=== PATIENT | male | born 2000 | race Two or more races ===

== ENCOUNTER 2024-07-04 14:41 | Emergency (ER) | payer MEDICAID ==
[~2024-07-04] VITALS: Ht 172.7 cm; Wt 90.0 kg
[2024-07-04 14:44] VITALS: TEMP 97.6
[2024-07-04 17:21] LABS: BASOPHILS % (AUTO) 1.1 % (0.0-2.0); EOSINOPHILS % (AUTO) 2.2 % (1.0-6.0); HEMATOCRIT 46.5 % (41-53); HEMOGLOBIN 15.3 g/dL (13.5-17.5); LYMPHOCYTES # (AUTO) 1.8 K/uL (1.0-4.8); LYMPHOCYTES % (AUTO) 18.2 % (22.0-44.0); MEAN CORPUSCULAR HEMOGLOBIN 30.5 pg (26.0-34.0); MEAN CORPUSCULAR VOLUME 93 fL (80-100); MONOCYTES # (AUTO) 0.8 K/uL (0.1-1.0); MONOCYTES % (AUTO) 8.7 % (2.0-9.0); NEUTROPHILS # (AUTO) 6.7 K/uL (1.8-7.7); NEUTROPHILS % (AUTO) 69.8 % (40.0-70.0); PLATELET COUNT (AUTO) 391 K/uL (150-450); RED BLOOD CELL COUNT(AUTO) 5.02 MIL/uL (4.50-5.90); RED CELL DISTRIBUTION WIDTH 12.8 % (11.5-14.5); WHITE BLOOD COUNT (AUTO) 9.6 K/uL (4.5-11.0)
[2024-07-04 17:34] LABS: ANION GAP 8 mmol/L (8-16); CALCIUM, TOTAL 9.3 mg/dL (8.8-10.5); CARBON DIOXIDE 29 mmol/L (22-29); CHLORIDE 101 mmol/L (98-107); CREATININE 0.61 mg/dL (0.60-1.30); GLOMERULAR FILTR. RATE CALC > 60 mL/min (>60); GLUCOSE,RANDOM 100 mg/dL (70-110); POTASSIUM 4.3 mmol/L (3.5-5.1); SODIUM SERUM 138 mmol/L (136-145); UREA NITROGEN, BLOOD 7 mg/dL (7-18)
[2024-07-04 17:42] LABS: TROPONIN I-HIGH SENSITIVITY 4 ng/L (<76)
[2024-07-04 20:05] VITALS: BP 125/88; PULSE 72; RESP 18; O2SAT 96
[2024-07-04] MEDS ORDERED: DIPH50CA37 PO (20:28)
[2024-07-04] MEDS: DiphenhydrAMINE HCL 25 MG CAPSULE PO ONE (20:33)
[2024-07-04] MEDS: LORazepam 2 MG TABLET PO ONE (20:34)
== END 2024-07-04 20:52 | disposition home or self-care (01) ==
LOC: EMS 14:41
DX: R00.2 Palpitations (principal); G47.00 Insomnia, unspecified; F41.1 Generalized anxiety disorder; R51.9 Headache, unspecified
CPT/HCPCS: 80048; 84484; 85025; 93005; 99284